=== PATIENT | male | born 1950 | race African-American/Black ===

== ENCOUNTER 2023-11-18 13:10 | Emergency (ER) | payer OTHER ==
[~2023-11-18] VITALS: Ht 175.3 cm; Wt 79.5 kg
[2023-11-18 14:25] VITALS: BP 129/64; PULSE 78; RESP 18; TEMP 98.7; O2SAT 98
[2023-11-18] MEDS ORDERED: MECL1TAB42 PO (15:44)
[2023-11-18] MEDS ORDERED: IBUP-1456 PO (15:44)
== END 2023-11-18 16:00 | disposition home or self-care (01) ==
LOC: EDBD 13:10 → ER 13:10
DX: S06.0X0A Concussion without loss of consciousness, initial encounter (principal); S39.012A Strain of muscle, fascia and tendon of lower back, initial encounter; E11.9 Type 2 diabetes mellitus without complications; Z79.899 Other long term (current) drug therapy; V49.88XA Car occupant (driver) (passenger) injured in other specified transport accidents, initial encounter; Y93.89 Activity, other specified; Y92.89 Other specified places as the place of occurrence of the external cause; Y99.8 Other external cause status
CPT/HCPCS: 70450; 72220

== ENCOUNTER 2025-06-11 08:27 | Inpatient (IN) | payer OTHER ==
[2025-06-11] VITALS (44 sets, daily range): BP systolic 108–143; BP diastolic 50–69; PULSE 50–74; RESP 0–22; TEMP 98.2–99.1; O2SAT 92–100
[~2025-06-11] VITALS: Ht 175.3 cm; Wt 75.0 kg
[~2025-06-11 08:27] MED LIST: IBUP-1456 PO; MECL1TAB42 PO
--- NOTE | 2025-06-11 08:43 | ED.PDOC ---
HPI Comments 75 year old male with PMHx DM presents to the ED with a chief complaint of chest pain onset 2 days. Patient has been experiencing LT sided chest pain radiating to bilateral arms, shoulders and back, headache for the past 2 days. 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 Denies shortness of breath, dizziness, nausea, vomiting, diarrhea, cough, cold, congestion, dysuria, hematuria. No other symptoms or modifying factors pr esent at this time. Chief Complaint: Chest Pain Time Seen by MD: 08:40 Reviewed Notes: Medications, Allergies Allergies: Coded Allergies: NO KNOWN ALLERGIES (Unverified , 11/18/23) Home Meds Active Scripts Meclizine HCl (Meclizine 25) 25 Mg Tab, 25 MG PO BID, #20 TAB Prov:VIKAS DUCKWORTH 11/18/23 Ibuprofen (Ibuprofen) 800 Mg Tab, 1 TAB PO TID, #30 TAB Prov:VIKAS DUCKWORTH 11/18/23 Information Source: Patient Mode of Arrival: Ambulatory Severity: Moderate Timing: Days Duration: Since onset Prehospital treatment: None Location: Chest (L) Radiation: Back, Shoulder (R), Shoulder (L), Arm (R), Arm (L) Quality: Sharp Onset: At Rest Cardiac Risk Factors: HTN, None PE Risk Factors: None History of: None Associated Signs and Symptoms: Back Pain Past Medical History PAST MEDICAL HISTORY: DM Surgical History: Denies all surgeries Family History Family History: Reviewed,noncontributory to illness Social History Smoker: Non-Smoker Alcohol: Denies ETOH Use Drugs: Denies Drug Use Lives In: Home Constitutional: denies: chills, diaphoresis, fatigue, fever, malaise, sweats, weakness, others EENTM: denies: blurred vision, double vision, ear bleeding, ear discharge, ear drainage, ear pain, ear ringing, eye pain, eye redness, hearing loss, mouth pain, mouth swelling, nasal discharge, nose bleeding, nose congestion, nose pain, photophobia, tearing, throat pain, throat swelling, voice changes, others Respiratory: denies: cough, hemoptysis, orthopnea, SOB at rest, shortness of breath, SOB with excertion, stridor, wheezing, others Cardiovascular: reports: chest pain; denies: dizzy spells, diaphoresis, Dyspnea on exertion, edema, irregular heart beat, left arm pain, lightheadedness, pa lpitations, PND, syncope, others Gastrointestinal: denies: abdomen distended, abdominal pain, blood streaked bowels, constipated, diarrhea, dysphagia, difficulty swallowing, hematemesis, melena, nausea, poor appetite, poor fluid intake, rectal bleeding, rectal pain, vomiting, others Genitourinary: denies: burning, dysuria, flank pain, frequency, hematuria, incontinence, penile discharge, penile sore, pain, testicle pain, testicle swelling, urgency, others Neurological: denies: dizziness, fainting, headache, left sided numbness, left sided weakness, numbness, paresthesia, pre-existing deficit, right sided numbness, right sided weakness, seizure, speech problems, tingling, tremors, weakness, others Musculoskeletal: reports: back pain, others (bilateral arm pain, bilateral shoulder pain); denies: gout, joint pain, joint swelling, muscle pain, muscle stiffness, neck pain Integumetry: denies: bruises, change in color, change in hair/nails, dryness, laceration, lesions, lumps, rash, wounds, others Allergic/Immunocompromised: denies: Difficulty Healing, Frequent Infections, Hives, Itching, others Hematologic/Lymphatic: denies: anemia, blood clots, easy bleeding, easy bruising, swollen glands, others Endocrine: denies: excessive hunger, excessive sweating, excessive thirst, excessive urination, flushing, intolerance to cold, intolerance to heat, unexplained weight gain, unexplained weight loss, others Psychiatric: denies: anxiety, bipolar disorder, depression, hopeless, panic disorder, schizophrenia, sleepless, suicidal, others All Other Systems: Reviewed and Negative Physical Exam General Appearance: Moderate Distress, Normal HEENT: Normal ENT Inspection, Pharynx Normal, TMs Normal Neck: Full Range of Motion, Non-Tender, Normal, Normal Inspection Respiratory: Chest Non-Tender, Lungs Clear, No Accessory Muscle Use, No Respiratory Distress, Normal Breath Sounds Cardiovascular: No Edema, No JVD, No Murmur, No Gallop, Normal Peripheral Pulses, Regular Rate/Rhythm Breast Exam: Deferred Gastrointestinal: No Organomegaly, Non Tender, No Pulsatile Mass, Normal Bowel Sounds, Soft Genitalia: Deferred Pelvic: Deferred Rectal: Deferred Extremities: No calf tenderness, Normal capillary refill, Normal inspection, Normal range of motion, Non-tender, No pedal edema Musculoskeletal : Apperance: Normal Neurologic: Alert, seismograph shooter II-XII nml as Tested, No Motor Deficits, Normal Affect, Normal Mood, No Sensory Deficits Cerebellar Function: Normal Reflexes: Normal Skin: Dry, Normal Color, Warm Peripheral Pulses: 3+ Radial (R), 3+ Radial (L) Lymphatic: No Adenopathy EKG EKG : Pulse Rate (adult): 58 Cardiac Rhythm: NSR Was a procedure done? Was a procedure done?: No CP Differential Dx Differential Diagnosis: A-fib, A-Flutter, Angina, Anxiety / Panic Attack, At rial Dysrhythmia, Electrolyte Disorder Differential Diagnosis: Chest Wall Pain, Myocardial Infarction X-Ray, Labs, Meds, VS Vital Signs Date Time Temp Pulse Resp B/P (MAP) Pulse Ox O2 Delivery O2 Flow Rate FiO2 06/11/25 09:12 52 06/11/25 09:12 111/51 06/11/25 09:12 98.7 52 16 111/51 (71) 99 98.7 06/11/25 08:43 58 06/11/25 08:36 58 06/11/25 08:34 98.0 57 16 132/70 96 98.0 Lab Test 06/11/25 08:40 Range/Units White Blood Count 8.1 4.4-10.8 10^3/uL Red Blood Count 4.95 4.5-5.90 10^6/uL Hemoglobin 14.7 13.5-17.5 g/dL Hematocrit 43.3 41.0-53.0 % Mean Corpuscular Volume 87.6 80.0-100.0 fL Mean Corpuscular Hemoglobin 29.7 28.0-32.0 pg Mean Corpuscular Hemoglobin Concent 34.0 32.0-36.0 g/dL Red Cell Distribution Width 12.8 11.8-14.3 % Platelet Count 320 140-450 10^3/uL Mean Platelet Volume 7.7 6.9-10.8 fL Neutrophils (%) (Auto) 71.1 37.0-80.0 % Lymphocytes (%) (Auto) 19.9 10.0-50.0 % Monocytes (%) (Auto) 7.8 0.0-12.0 % Eosinophils (%) (Auto) 0.5 0.0-7.0 % Basophils (%) (Auto) 0.7 0.0-2.0 % Neutrophils # (Auto) 5.8 1.6-8.6 10 ^3/uL Lymphocytes # (Auto) 1.6 0.4-5.4 10 ^3/uL Monocytes # (Auto) 0.6 0-1.3 10 ^3/uL Eosinophils # (Auto) 0 0-0.8 10 ^3/uL Basophils # (Auto) 0.1 0-0.2 10 ^3/uL Nucleated Red Blood Cells 0.0 % Prothrombin Time Pending Prothrombin Time INR Pending Activated Partial Thromboplast Time Pending Sodium Level 140 136-145 mmol/L Potassium Level 4.4 3.5-5.1 mmol/L Chloride Level 102 98-107 mmol/L Carbon Dioxide Level 26 20-31 mmol/L Anion Gap 12 5-15 Blood Urea Nitrogen 17 9-23 mg/dL Creatinine 1.27 0.700-1.30 mg/dL Glomerular Filtration Rate Calc 59 >90 mL/min BUN/Creatinine Ratio 13.4 10.0-20.0 Serum Glucose 296 H 74-106 mg/dL Hemoglobin A1c Pending Calcium Level 9.9 8.7-10.4 mg/dL Magnesium Level 2.2 1.6-2.6 mg/dL Total Bilirubin 0.4 0.2-1.0 mg/dL Aspartate Amino Transferase (AST) 21 13-40 U/L Alanine Aminotransferase (ALT) 29 7-40 U/L Alkaline Phosphatase 128 H 46-116 U/L Troponin I High Sensitivity 230 *H </=54 ng/L Total Protein 7.5 5.7-8.2 g/dL Albumin 4.8 3.2-4.8 g/dL Current Medications Medications (Trade) Dose Ordered Sig/Stacey Route Start Time Stop Time Status Last Admin Aspirin 325 mg ONCE ONCE PO 06/11/25 09:00 06/11/25 09:01 DC 06/11/25 09:11 Nitroglycerin (Ntrostat Sublingual) 0.4 mg ONCE ONCE SL 06/11/25 09:00 06/11/25 09:01 DC 06/11/25 09:12 Patient alert. Complaining of chest pain. Vitals stable. Answering questions. EKG reviewed does not show any acute changes. Was given aspirin. Was given nitro. Patient cardiac rhythm has change. Cardiac marker elevated. Was given heparin. Blood sugar elevated. Spoke with Cardiology. Has risk factors for coronary artery disease. Explained to the patient. Continue monitoring. [facility] [address] [place] [id number] Ph: [phone] DIAGNOSTIC IMAGING Diagnostic Imaging Report : [id number] Signed PATIENT: SHANNAN LARSON JRCCT: [id number] UNIT: [id number] : 1950 LOC: ER ROOM / BED: / AGE / SEX: 75 / M ADM STATUS: REG ER SERVICE 1 ORDERING PHYSICIAN: ROBERT BARTLETT MD PROCEDURE(s): CXRP - CHEST PORTABLE REASON: chest pain ORDER NUMBER(s): [id number], ACCESSION NUMBER(s): [id number] CHEST RADIOGRAPH INDICATION: chest pain TECHNIQUE: Single frontal view of the chest was obtained COMPARISON: None FINDINGS: Lines and Tubes: None Lungs: Clear Pleura: No effusion. No pneumothorax. Cardiomediastinal contours: Unremarkable Bones: Unremarkable IMPRESSION: No acute disease. ATED BY: RICKI BAJWA MD DICTATED DATE/TIME: 06/11/25906 SIGNED BY: RICKI BAJWA MD SIGNED DATE/TIME: 06/11/25906 CC: Time of 1ST Reevaluation: 09:10 Reevaluation 1ST: Unchanged Patient Education/Counseling: Diagnosis, Treatment, Prognosis Family Education/Counseling: No Family Present SEPSIS Sepsis Screen Physician Orders Chest Portable (06/11/25 08:32) Urinalysis (06/11/25 08:30) Electrocardigram (06/11/25 08:30) Troponin-I Hs (06/11/25 09:30) Troponin-I Hs (06/11/25 11:30) Electrocardigram (06/11/25 09:30) Electrocardigram (06/11/25 11:30) PTPTT (06/11/25 09:45) Type And Screen (06/11/25 09:45) Heparin Sodium (Porcine) (06/11/25 10:00) Heparin Sodium (Porcine) (06/11/25 10:00) Morphine Sulfate Injection (06/11/25 10:00) Ondansetron Hcl (Zofran) (06/11/25 10:00) Hydromorphone Injection (Dilaudid Inject (06/11/25 10:00) Ondansetron Hcl (Zofran) (06/11/25 10:00) NS (06/11/25 10:00) Obtain Consent For: (06/11/25 09:54) Shave Both Groins (06/11/25 09:54) Provide Education Materials (06/11/25 09:54) Cl Left Heart Cath (06/11/25 09:54) Comprehensive Metabolic Panel (06/13/25 04:00) Obtain Consent For Anesthesia (06/11/25 09:54) Hemoglobin A1c (06/11/25 09:59) Lipid Panel (06/11/25 09:59) Thyroid Stimulating Hormone (06/11/25 09:59) Echo 2d Mode Cardiac Dop (06/11/25 09:59) Complete Blood Count (06/12/25 04:00) Comprehensive Metabolic Panel (06/12/25 04:00) Vital Signs Date Time Temp Pulse Resp B/P (MAP) Pulse Ox O2 Delivery O2 Flow Rate FiO2 06/11/25 09:12 52 06/11/25 09:12 111/51 06/11/25 09:12 98.7 52 16 111/51 (71) 99 98.7 06/11/25 08:43 58 06/11/25 08:36 58 06/11/25 08:34 98.0 57 16 132/70 96 98.0 Laboratory Tests Test 06/11/25 08:40 White Blood Count 8.1 10^3/uL (4.4-10.8) Medications Medications Dose Ordered Sig/Stacey Route Start Time Stop Time Status Last Admin Dose Admin Aspirin 325 mg ONCE ONCE PO 06/11/25 09:00 06/11/25 09:01 DC 06/11/25 09:11 Nitroglycerin 0.4 mg ONCE ONCE SL 06/11/25 09:00 06/11/25 09:01 DC 06/11/25 09:12 Departure 1 Departure Time of Disposition: 08:46 Impression: Primary Impression: Chest pain of unknown etiology Additional Impressions: NSTEMI (non-ST elevated myocardial infarction) Demand ischemia Hyperglycemia Disposition: ADMITTED INPATIENT Admit to: Med Surg Condition: Guarded Critical Care Note Critical Care Time?: No Stability Stability form required: No Heart Score Heart Score: Heart Score Response (Comments) Value History Slightly Suspicious 0 EKG Normal 0 Age >65 2 Risk Factors >3 or Hx ASHD 2 Troponin >3 x's Normal limit 2 Total 6 I personally scribed for ROBERT BARTLETT MD ([email or web address]) on 06/11/25 at 08:43. Electronically submitted by Angelita Shah ([email or web address]). I personally scribed for ROBERT BARTLETT MD ([email or web address]) on 06/11/25 at 10:09. Electronically submitted by Angelita Shah ([email or web address]). ROBERT BARTLETT MD Jun 11, 2025 08:43
--- NOTE | 2025-06-11 09:09 | DVH ---
CHEST RADIOGRAPH INDICATION: chest pain TECHNIQUE: Single frontal view of the chest was obtained COMPARISON: None FINDINGS: Lines and Tubes: None Lungs: Clear Pleura: No effusion. No pneumothorax. Cardiomediastinal contours: Unremarkable Bones: Unremarkable IMPRESSION: No acute disease.
[2025-06-11 09:12] LABS: Hematocrit 43.3 % (41.0-53.0); Hemoglobin 14.7 g/dL (13.5-17.5); Mean Corpuscular Hemoglobin 29.7 pg (28.0-32.0); Mean Corpuscular Volume 87.6 fL (80.0-100.0); Nucleated Red Blood Cells % 0.0 %
[2025-06-11] MEDS: NITROGLYCERIN 0.4 MG SL TAB SL ONE (09:12)
[2025-06-11 09:38] LABS: Alanine Aminotransferase 29 U/L (7-40); Albumin 4.8 g/dL (3.2-4.8); Anion Gap 12 (5-15); BUN/Creatinine Ratio 13.4 (10.0-20.0); Blood Urea Nitrogen 17 mg/dL (9-23); Calcium 9.9 mg/dL (8.7-10.4); Carbon Dioxide 26 mmol/L (20-31); Chloride 102 mmol/L (98-107); Magnesium 2.2 mg/dL (1.6-2.6); Potassium 4.4 mmol/L (3.5-5.1); Sodium 140 mmol/L (136-145); Total Protein 7.5 g/dL (5.7-8.2)
[2025-06-11 09:39] LABS: Alkaline Phosphatase 128 U/L (46-116); Bilirubin, Total 0.4 mg/dL (0.2-1.0); Glucose 296 mg/dL (74-106)
[2025-06-11] MEDS: HEPARIN SODIUM (PORCINE) 5000 UNITS/ML 1ML VIAL ONE ×2 (09:53→10:29)
--- NOTE | 2025-06-11 09:56 | DVHINCON2 ---
Date Seen: Jun 11, 2025 Referring Physician MD Chen Reason for Consultation STEMI History of Present Illness This is a 75-year-old man who presented to the emergency room via ambulation with a chief complaint of chest pain since Wednesday06/09/2025. Describes his chest pain as substernal, radiating to bilateral upper extremities, pressure- like, non provoked, and associated with diaphoresis and a headache. The patient self administered ibuprofen p.o. with no relief of symptoms on 06/08/2025. Given ongoing chest pain symptoms he decided to seek further medical attention. Upon arrival to the emergency room he underwent an initial 12 lead electrocardiogram revealing a sinus bradycardia rhythm with nonspecific ST-T wave changes to lead three. A subsequent 12 lead electrocardiogram revealed progressive inferior wall ST segment elevation for which a code STEMI was called by ED physician. At time of assessment, the patient rated his chest pain as 10/10. Significant medical history includes hnw-sjrusti-dhldhedmj diabetes mellitus and dyslipidemia. Past Medical History Past medical history reviewed. No other significant than mentioned above. Past Surgical History Right thumb Family History Family history reviewed. Denies for cardiovascular disease. Social History Denies the use of illicit drugs, alcohol, or tobacco use. Allergies: Coded Allergies: NO KNOWN ALLERGIES (Unverified , 11/18/23) Home Meds Active Scripts Meclizine HCl (Meclizine 25) 25 Mg Tab, 25 MG PO BID, #20 TAB Prov:VIKAS DUCKWORTH 11/18/23 Ibuprofen (Ibuprofen) 800 Mg Tab, 1 TAB PO TID, #30 TAB Prov:VIKAS DUCKWORTH 11/18/23 Home Meds Home medications reviewed. Review of Systems Constitutional: No symptom reported Ears, Nose, & Throat: No symptom reported Eyes: No symptom reported Neurological: No symptoms reported Pulmonary/Respiratory: No symptom reported Cardiovascular: Chest pain Gastrointestinal: No symptom reported Genitourinary: No symptom reported Musculoskeletal: No symptom reported Skin: No symptom reported Psychiatric: No symptom reported Endocrine: No symptom reported Hemotologic/Lymphatic: No symptom reported Vital Signs Vital Signs Date Time Temp Pulse Resp B/P (MAP) Pulse Ox O2 Delivery O2 Flow Rate FiO2 06/11/25 09:12 52 06/11/25 09:12 111/51 06/11/25 09:12 98.7 16 99 98.7 Physical Exam General Appearance: Cooperative. Well developed. Well nourished. In no acute distress Head Exam: Normal inspection Neck Exam: Normal inspection. Non-tender. Normal alignment Pulmonary/Respiratory: Chest non-tender. Clear bilateral breath sounds Cardiovascular/Chest: Regular rate and rhythm. S1, S2. Inferior wall myocardial infarction. No murmurs. No JVD. Peripheral Pulses: 2+ Radial (R). 2+ Radial (L). 2+ Pedal (R). 2+ Pedal (L) Abdominal Exam: Normal bowel sounds. Soft. Nontender. No hepatospenomegaly. No masses Ankle Exam: Negative ankle edema Lower extremities: Negative lower extremity edema Neuro/Mental Status: A&O x4. Coherent Thoughts/Psych: Normal thought pattern. Appropriate mood and affect. Good judgement and insight Appearance: In no acute distress Skin Exam: Normal inspection. Normal color. Warm. Dry Labs/Diagnostic Data Labs Test 06/11/25 08:40 Range/Units White Blood Count 8.1 4.4-10.8 10^3/uL Red Blood Count 4.95 4.5-5.90 10^6/uL Hemoglobin 14.7 13.5-17.5 g/dL Hematocrit 43.3 41.0-53.0 % Mean Corpuscular Volume 87.6 80.0-100.0 fL Mean Corpuscular Hemoglobin 29.7 28.0-32.0 pg Mean Corpuscular Hemoglobin Concent 34.0 32.0-36.0 g/dL Red Cell Distribution Width 12.8 11.8-14.3 % Platelet Count 320 140-450 10^3/uL Mean Platelet Volume 7.7 6.9-10.8 fL Neutrophils (%) (Auto) 71.1 37.0-80.0 % Lymphocytes (%) (Auto) 19.9 10.0-50.0 % Monocytes (%) (Auto) 7.8 0.0-12.0 % Eosinophils (%) (Auto) 0.5 0.0-7.0 % Basophils (%) (Auto) 0.7 0.0-2.0 % Neutrophils # (Auto) 5.8 1.6-8.6 10 ^3/uL Lymphocytes # (Auto) 1.6 0.4-5.4 10 ^3/uL Monocytes # (Auto) 0.6 0-1.3 10 ^3/uL Eosinophils # (Auto) 0 0-0.8 10 ^3/uL Basophils # (Auto) 0.1 0-0.2 10 ^3/uL Nucleated Red Blood Cells 0.0 % Sodium Level 140 136-145 mmol/L Potassium Level 4.4 3.5-5.1 mmol/L Chloride Level 102 98-107 mmol/L Carbon Dioxide Level 26 20-31 mmol/L Anion Gap 12 5-15 Blood Urea Nitrogen 17 9-23 mg/dL Creatinine 1.27 0.700-1.30 mg/dL Glomerular Filtration Rate Calc 59 >90 mL/min BUN/Creatinine Ratio 13.4 10.0-20.0 Serum Glucose 296 H 74-106 mg/dL Calcium Level 9.9 8.7-10.4 mg/dL Magnesium Level 2.2 1.6-2.6 mg/dL Total Bilirubin 0.4 0.2-1.0 mg/dL Aspartate Amino Transferase (AST) 21 13-40 U/L Alanine Aminotransferase (ALT) 29 7-40 U/L Alkaline Phosphatase 128 H 46-116 U/L Troponin I High Sensitivity 230 *H </=54 ng/L Total Protein 7.5 5.7-8.2 g/dL Albumin 4.8 3.2-4.8 g/dL Assessment ST-elevation myocardial infarction Inferior wall myocardial infarction Rule out structural heart disease Asymptomatic sinus bradycardia Dte-fmpkxnc-letnlfwao diabetes mellitus with hyperglycemia Dyslipidemia Plan/Recommendation (Dr. Lambert) Code STEMI activated. The patient will be going for emergent cardiac catheterization and coronary angiogram at first available. All risks and benefits of the procedure were discussed with the patient and at bedside, they both agree for intervention. All questions answered. The patient was loaded on heparin and ASA prior to intervention. Avoid nitrates and/or diuretics. Initiate IV fluids given hyperglycemia. We will continue further cardiac evaluation with a transthoracic echocardiogram to rule out structural heart disease. Further orders per clinical course. Thank you for allowing us to participate in this patient's care. Please call if you have any questions or concerns. Critical care time: 40 minutes. This medical document was created using an electronic medical record system with voice recognition software and computerized dictation system. Although this document has been carefully reviewed, there might still be some phonetic and typographical errors. Occ asional wrong-word or ``sound-alike substitutions may have occurred due to the inherent limitations of voice recognition software. These areas are purely typographical due to imperfections of the software programs and do not reflect any compromise in the patient's medical care. Please read the chart carefully and recognize, using context, where these substitutions have occurred. Plan discussed with: Patient, Spouse, Other NYHA Physical activity limitations: NA Date of Service: Jun 11, 2025 Billing Provider: BONG FERRERA Cardiology Common Codes: 09865-[id number] CARE 30-74 MIN BONG FERRERA Jun 11, 2025 09:56
--- NOTE | 2025-06-11 10:09 | ECG ---
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
--- NOTE | 2025-06-11 10:09 | ECG ---
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
[2025-06-11] MEDS: MORPHINE SULFATE INJ 2 MG/ml SYRG IV ONE (10:12)
[2025-06-11] MEDS: HYDROmorphone HCL 2 MG/ML VL/or syr IV ONE (10:12)
[2025-06-11] MEDS: SODIUM CHLORIDE 0.9% 1,000 ML IV ONE (10:12)
[2025-06-11] MEDS: HEPARIN SODIUM (PORCINE) 5000 UNITS/ML 1ML VIAL IV ONE ×2 (10:12)
[2025-06-11] MEDS: ONDANSETRON HCL 4 MG/2 ML VIAL IV ONE ×2 (10:13)
[2025-06-11] MEDS: LIDOCAINE 2%HCL (LOCAL ANESTH.) INJ 20ML MDV ONE (10:15)
[2025-06-11] MEDS: IODIXANOL 320MG/ML 100ML BTL IV ONE ×2 (10:15→11:27)
[2025-06-11] MEDS: ANGIOMAX 250 MG VIAL IV ONE (10:29)
[2025-06-11] MEDS: VERAPAMIL 2.5MG/ML INJ 2ML VIAL IV ONE (10:29)
[2025-06-11] MEDS: SODIUM CHL 0.9% 50 ML ONE (10:30)
[2025-06-11] MEDS: MIDAZOLAM HCL 2MG/2ML 2ml VIAL (1mg/ml) ONE (10:30)
[2025-06-11] MEDS: fentaNYL CITRATE 100 MCG/2 ML VL ONE (10:30)
[2025-06-11 10:34] LABS: INR 0.95 (0.9-1.15); Partial Thromboplastin Time 25.7 SEC (24.5-34.5); Prothrombin Time 10.1 sec (9.3-11.8)
[2025-06-11] MEDS: TICAGRELOR 90 MG TAB ONE (11:27)
[2025-06-11] MEDS ORDERED: NITROGLYCERIN 0.4 MG SL TAB SL PRN (11:45)
--- NOTE | 2025-06-11 11:55 | DVHOP ---
DATE OF SURGERY: 06/11/2025 TECHNIQUE PERFORMED: * Code STEMI. * Insertion of a 6-Dominican arterial line in the artery. * Management of conscious sedation. * Right coronary angiography. * Mechanical thrombectomy of the right coronary artery with [place] catheter. * Stenting and angioplasty of the mid region of the right coronary artery with 3.5 x 15 mm length only frontal stent of VeriTran, 3.0 x 15 mm length. * Intravascular ultrasound of the right coronary artery. * Balloon angioplasty of the right coronary artery stent with 3.5 x 8 mm length and noncompliant balloon. Made the artery size to 3.55. COMPLICATIONS: None. ASSISTANTS: Assisted by our staff over here is Sim Grant, Quinn Renner, and Fredy. INDICATIONS: Post-STEMI acute inferior wall myocardial infarction. DESCRIPTION OF PROCEDURE: All risks, benefits discussed in a standard manner. The patient has been brought to the cathead worker urgently and we put a 6-Dominican arterial line and the patient received a cocktail of 100 mcg of nitroglycerin, 2.5 mg of verapamil, 2000 units of heparin, JL4 6-Dominican guiding catheter with a side hole was passed. We put a ProWater wire and AngioMax already was started. We got thrombectomy done with [place] catheter. Subsequently, we put a stent 3.0 x 15 mm line only further and then deployed. A total of 17 atmosphere. Stent size was increased to 3.25 mm inflated for 31 seconds and subsequently balloon deflated. Balloon had been discontinued. Interval ultrasound was done. We found minor gap in the stent and the media. We put 3.5 x 8 mm length noncompliant balloon made inflated and made the stent size to 3.55 mm. Balloon wire catheter all have been discontinued and procedure went well. CONCLUSION: * Prior to performing the procedure #1, the right coronary artery at its mid region is 100% acutely occluded, SEAN grade 0 flow. Right coronary artery is a large dominant artery. * Post procedure, SEAN grade 3 flow and residual stenosis is 0%. No spasm. No dissection. No thrombosis. PLAN OF ACTION: Advised the patient to have aspirin and Brilinta, beta zi, cholesterol reducing medicine, and outpatient follow up. Gustavo Lambert MD MP/TRACIE TID: [id number] RECEIPT: [id number] MTDD
--- NOTE | 2025-06-11 11:55 | DVHOP ---
DATE OF SURGERY: 06/11/2025 TECHNIQUE PERFORMED: * Code STEMI. * Ultrasound of right radial artery. * Management of conscious sedation. * Insertion of a 6-Italian arterial line in the right radial artery. * Left heart catheterization. * Left ventriculogram. * Full [place] selective left and right coronary angiography. ASSISTANTS: Assisted by our staff. Over here is Sim Grant and Zurdo Farooq. COMPLICATIONS: None. INDICATIONS: Code STEMI, acute inferior wall myocardial infarction. DESCRIPTION OF PROCEDURE: The procedure, risks and benefits were discussed in standard manner. We have put a JL 3.5 catheter and the left coronary angiography was done and subsequently, with the help of the 6-Italian JR-4, a guiding catheter with side hole and a right coronary angiography was done. At the end of the procedure, with the help of a similar catheter, we also did a left heart catheterization and left angiogram. Procedure completed. IMPRESSION: * Normal left main. * Left anterior descending artery widely open. * Circumflex artery normal. * Right coronary artery 100% acutely blocked after a mid region SEAN grade 0 flow. * Ejection fraction of the left ventricle is 60%. PLAN OF ACTION: Advise to undergo the intervention on the right coronary artery, which is acutely occluded and which is the cause of the code STEMI. MD MAMIE Lyles TID: [id number] RECEIPT: [id number]
[2025-06-11] MEDS ORDERED: MORPHINE SULFATE 4 MG/ML SYR/VIAL IV PRN (12:00)
[2025-06-11 12:06] LABS: Urine Protein, UAD TRACE (Negative)
[2025-06-11 13:33] LABS: Triglycerides 117 mg/dL (< 150)
[2025-06-11 13:35] LABS: HDL Cholesterol 55 mg/dL (40-59)
[2025-06-11 13:36] LABS: Cholesterol 229 mg/dL (< 200)
[2025-06-11] MEDS ORDERED: DEXTROSE (50%) 50ML SYRG IV PRN (18:00)
[2025-06-11] MEDS: InsuLIN REG 1unit/0.01ml Soln (100units/ml) SC SCH (19:22)
[2025-06-11] MEDS: ACCU-CHEK COMFORT CURVE STRIP VI SCH (19:23)
--- NOTE | 2025-06-11 20:16 | DVHSR ---
APPROVED REPORT EXAM: Two-dimensional and M-mode echocardiogram with Doppler and color Doppler. Blood Pressure: 142/71 mmHg INDICATION STEMI RISK FACTORS Height: 5'9", Weight: 164 DIMENSIONS LVDd 5.0 (3.8-5.7cm) LA (2D) 4.1 (1.9-4.0cm) Aortic Root 3.0 (2.0-3.7cm) LVDs 3.4 (2.5-4.0cm) LA (MM) (1.9-4.0cm) Aortic Cusp Exc 1.5 (1.5-2.0cm) EF (%) 60.0 (55-70%) Rt. Atrium 3.9 (1.9-4.0cm) Asc. Aorta 2.8 cm IVSd 1.1 (0.7-1.1cm) RV (D) 4.0 (1.8-2.4cm) PWd 1.0 (0.7-1.1cm) Mitral Valve Mitral Mitral Stenosis E wave 0.97m/s MV Mean GR. mmHg A wave 0.73m/s MV Peak GR. mmHg E/A ratio 1.3 2D MVA cm2 DECEL Time 155ms PRESS 1/2 Time ms Aortic Valve Aortic Valve Aortic Stenosis V1 0.88m/s AO Mean GR. 4mmHg V2 1.44m/s AO Peak GR. 8mmHg LVOT Diameter 2.3 (1.8-2.4cm) Doppler BARBARA 2.54cm2 Pulmonic Valve V2 0.83m/s Conclusion MILD LVH AND MILD LV DIASTOLIC DYSFUNCTION LV EF IS 70% NORMAL VALVES NORMAL RV FUNCTION NO EFFUSION
--- NOTE | 2025-06-11 20:32 | DVHINCON2 ---
Date Seen: Jun 11, 2025 Referring Physician MD Chen Reason for Consultation STEMI History of Present Illness This is a 75-year-old male with a PMH of poe-iptkbdm-wkdieqwfj diabetes mellitus and dyslipidemia who presented to the emergency room via ambulation with a chief complaint of chest pain since Wednesday06/09/2025. Describes his chest pain as substernal, radiating to bilateral upper extremities, pressure-like, non provoked, and associated with diaphoresis and a headache. The patient self administered ibuprofen p.o. with no relief of symptoms on 06/08/2025. Given ongoing chest pain symptoms he decided to seek further medical attention. Upon arrival to the emergency room he underwent an initial 12 lead electrocardiogram revealing a sinus bradycardia rhythm with nonspecific ST-T wave changes to lead three. A subsequent 12 lead electrocardiogram revealed progressive inferior wall ST segment elevation for which a code STEMI was called by ED physician. At time of assessment, the patient rated his chest pain as 10/10. Past Medical History Past medical history reviewed. No other significant than mentioned above. Past Surgical History Right thumb Family History: Diabetes mellitus G8 MOTHER FH: cancer G8 FATHER Allergies: Coded Allergies: NO KNOWN ALLERGIES (Unverified , 11/18/23) Home Meds Active Scripts Meclizine HCl (Meclizine 25) 25 Mg Tab, 25 MG PO BID, #20 TAB Prov:VIKAS DUCKWORTH 11/18/23 Ibuprofen (Ibuprofen) 800 Mg Tab, 1 TAB PO TID, #30 TAB Prov:VIKAS DUCKWORTH 11/18/23 Current Medications Current Medications Medications (Trade) Dose Ordered Sig/Stacey Route PRN Reason Start Time Stop Time Status Last Admin Nitroglycerin (Ntrostat Sublingual) 0.4 mg Q5MINP PRN SL FOR CHEST PAIN 06/11/25 11:45 Morphine Sulfate 2 mg Q30M PRN IV FOR CHEST PAIN 06/11/25 12:00 Ticagrelor (Brilinta) 90 mg BID PO 06/11/25 22:00 Aspirin (Ecotrin Enteric Coated Tablet) 81 mg DAILY PO 06/12/25 10:00 Metoprolol Tartrate (Lopressor Tablet) 25 mg DAILY PO 06/12/25 10:00 Atorvastatin Calcium (Lipitor) 80 mg DAILY PO 06/12/25 10:00 Diagnostic Test (Pha) (Accu-Chek Comfort Curve T) 1 strip Q6HR 06/11/25 18:00 06/11/25 19:23 Insulin Human Regular (InsuLIN R) Q6HR SC 06/11/25 18:00 06/11/25 19:22 Dextrose 50 ml UD PRN IV Blood Sugar LESS THAN 60 06/11/25 18:00 Review of Systems Constitutional: No symptom reported Ears, Nose, & Throat: No symptom reported Eyes: No symptom reported Neurological: No symptoms reported Pulmonary/Respiratory: No symptom reported Cardiovascular: Chest pain Gastrointestinal: No symptom reported Genitourinary: No symptom reported Musculoskeletal: No symptom reported Skin: No symptom reported Psychiatric: No symptom reported Endocrine: No symptom reported Hemotologic/Lymphatic: No symptom reported Vital Signs Vital Signs Date Time Temp Pulse Resp B/P (MAP) Pulse Ox O2 Delivery O2 Flow Rate FiO2 06/11/25 19:30 68 12 97 06/11/25 19:26 Room Air* 0 21 06/11/25 19:15 122/69 (86) 06/11/25 18:48 99.1 99.1 Physical Exam GENERAL: Alert and oriented x 3. No acute distress. EYES: PERRL, EOMI. Anicteric. HENT: Moist mucous membranes. LUNGS: Clear to auscultation bilaterally. CARDIOVASCULAR: Regular rate and rhythm. ABDOMEN: Soft, non-tender and non-distended. EXTREMITIES: No edema. NEUROLOGIC: No focal neurological deficits. SKIN: Warm, dry. Labs/Diagnostic Data Labs Test 06/11/25 18:44 06/11/25 09:48 06/11/25 09:18 06/11/25 08:40 Range/Units POC Glucose 312 H 70-106 mg/dl Troponin I High Sensitivity 237 *H </=54 ng/L Urine Color Yellow Yellow Urine Clarity Clear Clear Urine pH 5.5 5.0-9.0 Urine Specific [place] 1.025 1.001-1.035 Urine Protein Trace H Negative Urine Ketones 1+ H Negative Urine Blood Negative Negative /uL Urine Nitrite Negative Negative Urine Bilirubin Negative Negative Urine Urobilinogen Normal Negative mg/dL Urine Leukocyte Esterase Negative Negative /uL Urine RBC <1 0 - 3 /hpf Urine Microscopic WBC 6 H 0-3 /HPF Urine Squamous Epithelial Cells None seen <5 /hpf Urine Bacteria None seen None Seen /hpf Urine Mucus Few None Seen Urine Glucose 3+ H Normal mg/dL White Blood Count 8.1 4.4-10.8 10^3/uL Red Blood Count 4.95 4.5-5.90 10^6/uL Hemoglobin 14.7 13.5-17.5 g/dL Hematocrit 43.3 41.0-53.0 % Mean Corpuscular Volume 87.6 80.0-100.0 fL Mean Corpuscular Hemoglobin 29.7 28.0-32.0 pg Mean Corpuscular Hemoglobin Concent 34.0 32.0-36.0 g/dL Red Cell Distribution Width 12.8 11.8-14.3 % Platelet Count 320 140-450 10^3/uL Mean Platelet Volume 7.7 6.9-10.8 fL Neutrophils (%) (Auto) 71.1 37.0-80.0 % Lymphocytes (%) (Auto) 19.9 10.0-50.0 % Monocytes (%) (Auto) 7.8 0.0-12.0 % Eosinophils (%) (Auto) 0.5 0.0-7.0 % Basophils (%) (Auto) 0.7 0.0-2.0 % Neutrophils # (Auto) 5.8 1.6-8.6 10 ^3/uL Lymphocytes # (Auto) 1.6 0.4-5.4 10 ^3/uL Monocytes # (Auto) 0.6 0-1.3 10 ^3/uL Eosinophils # (Auto) 0 0-0.8 10 ^3/uL Basophils # (Auto) 0.1 0-0.2 10 ^3/uL Nucleated Red Blood Cells 0.0 % Prothrombin Time 10.1 9.3-11.8 sec Prothrombin Time INR 0.95 0.9-1.15 Activated Partial Thromboplast Time 25.7 24.5-34.5 SEC Sodium Level 140 136-145 mmol/L Potassium Level 4.4 3.5-5.1 mmol/L Chloride Level 102 98-107 mmol/L Carbon Dioxide Level 26 20-31 mmol/L Anion Gap 12 5-15 Blood Urea Nitrogen 17 9-23 mg/dL Creatinine 1.27 0.700-1.30 mg/dL Glomerular Filtration Rate Calc 59 >90 mL/min BUN/Creatinine Ratio 13.4 10.0-20.0 Serum Glucose 296 H 74-106 mg/dL Hemoglobin A1c 11.9 H <5.7 % A1C Calcium Level 9.9 8.7-10.4 mg/dL Magnesium Level 2.2 1.6-2.6 mg/dL Total Bilirubin 0.4 0.2-1.0 mg/dL Aspartate Amino Transferase (AST) 21 13-40 U/L Alanine Aminotransferase (ALT) 29 7-40 U/L Alkaline Phosphatase 128 H 46-116 U/L Total Protein 7.5 5.7-8.2 g/dL Albumin 4.8 3.2-4.8 g/dL Triglycerides Level 117 < 150 mg/dL Cholesterol Level 229 H < 200 mg/dL LDL Cholesterol 154 H < 100 mg/dL HDL Cholesterol 55 40-59 mg/dL Thyroid Stimulating Hormone (TSH) 2.95 0.55-4.78 uIU/mL Assessment ST-elevation myocardial infarction. Inferior wall myocardial infarction. Rule out structural heart disease. Asymptomatic sinus bradycardia. Oza-qssbalp-hgpgkjvsv diabetes mellitus with hyperglycemia. Dyslipidemia. Plan/Recommendation I agree with your ongoing assessment and care of plan. Patient has been seen by Salud Small NP on my behalf. We have discussed the plan with the patient. Code STEMI activated. The patient will be going for emergent cardiac catheterization and coronary angiogram at first available. All risks and benefits of the procedure were discussed with the patient and at bedside, they both agree for intervention. All questions answered. The patient was loaded on heparin and ASA prior to intervention. Avoid nitrates and/or diuretics. Initiate IV fluids given hyperglycemia. We will continue further cardiac evaluation with a transthoracic echocardiogram to rule out structural heart disease. Additional plan as per the hospital course. Plan discussed with: Patient NYHA Physical activity limitations: NA Date of Service: Jun 11, 2025 Billing Provider: JOSELINE ZELAYA MD Cardiology Common Codes: 36725-[id number] INP/OBS CARE (High), 28669-[id number] CARE 30-74 MIN, 44412-YSESPUJA CARE-EACH +30MIN JOSELINE ZELAYA MD Jun 11, 2025 20:32
[2025-06-11] MEDS: TICAGRELOR 90 MG TAB PO SCH (21:15)
[2025-06-12] VITALS (42 sets, daily range): BP systolic 94–127; BP diastolic 45–65; PULSE 47–76; RESP 0–22; TEMP 97.6–98.3; O2SAT 93–99
[2025-06-12 05:38] LABS: Hematocrit 39.8 % (41.0-53.0); Hemoglobin 13.2 g/dL (13.5-17.5); Mean Corpuscular Hemoglobin 29.2 pg (28.0-32.0); Mean Corpuscular Volume 88.1 fL (80.0-100.0); Nucleated Red Blood Cells % 0.1 %
[2025-06-12 06:06] LABS: Alanine Aminotransferase 30 U/L (7-40); Albumin 3.9 g/dL (3.2-4.8); Alkaline Phosphatase 103 U/L (46-116); Anion Gap 7 (5-15); BUN/Creatinine Ratio 12.0 (10.0-20.0); Bilirubin, Total 0.3 mg/dL (0.2-1.0); Blood Urea Nitrogen 12 mg/dL (9-23); Calcium 9.2 mg/dL (8.7-10.4); Carbon Dioxide 29 mmol/L (20-31); Chloride 103 mmol/L (98-107); Potassium 4.2 mmol/L (3.5-5.1); Sodium 139 mmol/L (136-145); Total Protein 6.4 g/dL (5.7-8.2)
[2025-06-12 06:09] LABS: Glucose 125 mg/dL (74-106)
[2025-06-12] MEDS: ASPirin-EC 81 mg tab PO SCH (09:19)
[2025-06-12] MEDS: ATORVASTATIN 20 MG TAB PO SCH (09:19)
[2025-06-12] MEDS: METOPROLOL TARTRATE 25 MG TAB PO SCH (09:20)
--- NOTE | 2025-06-12 10:39 | DVHHP2 ---
Review of Systems Allergies: Coded Allergies: NO KNOWN ALLERGIES (Unverified , 11/18/23) Medications Current Medications Medications Dose Ordered Sig/Stacey Route Start Time Stop Time Status Last Admin Dose Admin Nitroglycerin 0.4 mg Q5MINP PRN SL 06/11/25 11:45 Morphine Sulfate 2 mg Q30M PRN IV 06/11/25 12:00 Ticagrelor 90 mg BID PO 06/11/25 22:00 06/12/25 09:20 90 MG Aspirin 81 mg DAILY PO 06/12/25 10:00 06/12/25 09:19 81 MG Metoprolol Tartrate 25 mg DAILY PO 06/12/25 10:00 06/12/25 09:20 25 MG Atorvastatin Calcium 80 mg DAILY PO 06/12/25 10:00 06/12/25 09:19 80 MG Diagnostic Test (Pha) 1 strip Q6HR 06/11/25 18:00 06/12/25 05:06 1 STRIP Insulin Human Regular Q6HR SC 06/11/25 18:00 06/12/25 00:05 2 UNITS Dextrose 50 ml UD PRN IV 06/11/25 18:00 Exam Vital Signs Vital Signs Date Time Temp Pulse Resp B/P (MAP) Pulse Ox O2 Delivery O2 Flow Rate FiO2 06/12/25 09:20 76 108/55 06/12/25 08:00 Room Air* 0 21 06/12/25 06:49 16 06/12/25 06:20 97 06/12/25 00:19 98.3 98.3 Labs/Xrays Labs Test 06/12/25 05:09 06/12/25 05:05 06/11/25 09:48 06/11/25 09:18 Range/Units White Blood Count 8.3 4.4-10.8 10^3/uL Red Blood Count 4.52 4.5-5.90 10^6/uL Hemoglobin 13.2 L 13.5-17.5 g/dL Hematocrit 39.8 L 41.0-53.0 % Mean Corpuscular Volume 88.1 80.0-100.0 fL Mean Corpuscular Hemoglobin 29.2 28.0-32.0 pg Mean Corpuscular Hemoglobin Concent 33.1 32.0-36.0 g/dL Red Cell Distribution Width 13.1 11.8-14.3 % Platelet Count 289 140-450 10^3/uL Mean Platelet Volume 7.3 6.9-10.8 fL Neutrophils (%) (Auto) 76.1 37.0-80.0 % Lymphocytes (%) (Auto) 14.1 10.0-50.0 % Monocytes (%) (Auto) 8.9 0.0-12.0 % Eosinophils (%) (Auto) 0.7 0.0-7.0 % Basophils (%) (Auto) 0.2 0.0-2.0 % Neutrophils # (Auto) 6.4 1.6-8.6 10 ^3/uL Lymphocytes # (Auto) 1.2 0.4-5.4 10 ^3/uL Monocytes # (Auto) 0.7 0-1.3 10 ^3/uL Eosinophils # (Auto) 0.1 0-0.8 10 ^3/uL Basophils # (Auto) 0 0-0.2 10 ^3/uL Nucleated Red Blood Cells 0.1 % Sodium Level 139 136-145 mmol/L Potassium Level 4.2 3.5-5.1 mmol/L Chloride Level 103 98-107 mmol/L Carbon Dioxide Level 29 20-31 mmol/L Anion Gap 7 5-15 Blood Urea Nitrogen 12 9-23 mg/dL Creatinine 1.00 0.700-1.30 mg/dL Glomerular Filtration Rate Calc 79 >90 mL/min BUN/Creatinine Ratio 12.0 10.0-20.0 Serum Glucose 125 #H 74-106 mg/dL Calcium Level 9.2 8.7-10.4 mg/dL Total Bilirubin 0.3 0.2-1.0 mg/dL Aspartate Amino Transferase (AST) 71 H 13-40 U/L Alanine Aminotransferase (ALT) 30 7-40 U/L Alkaline Phosphatase 103 46-116 U/L Total Protein 6.4 5.7-8.2 g/dL Albumin 3.9 3.2-4.8 g/dL POC Glucose 123 H 70-106 mg/dl Troponin I High Sensitivity 237 *H </=54 ng/L Urine Color Yellow Yellow Urine Clarity Clear Clear Urine pH 5.5 5.0-9.0 Urine Specific [place] 1.025 1.001-1.035 Urine Protein Trace H Negative Urine Ketones 1+ H Negative Urine Blood Negative Negative /uL Urine Nitrite Negative Negative Urine Bilirubin Negative Negative Urine Urobilinogen Normal Negative mg/dL Urine Leukocyte Esterase Negative Negative /uL Urine RBC <1 0 - 3 /hpf Urine Microscopic WBC 6 H 0-3 /HPF Urine Squamous Epithelial Cells None seen <5 /hpf Urine Bacteria None seen None Seen /hpf Urine Mucus Few None Seen Urine Glucose 3+ H Normal mg/dL Test 06/11/25 08:40 Range/Units Prothrombin Time 10.1 9.3-11.8 sec Prothrombin Time INR 0.95 0.9-1.15 Activated Partial Thromboplast Time 25.7 24.5-34.5 SEC Hemoglobin A1c 11.9 H <5.7 % A1C Magnesium Level 2.2 1.6-2.6 mg/dL Triglycerides Level 117 < 150 mg/dL Cholesterol Level 229 H < 200 mg/dL LDL Cholesterol 154 H < 100 mg/dL HDL Cholesterol 55 40-59 mg/dL Thyroid Stimulating Hormone (TSH) 2.95 0.55-4.78 uIU/mL SEPSIS Sepsis Screen Date sepsis recognized/suspect: Jun 11, 2025 Time Sepsis recognized/suspect: 911 Recent Procedure: No On Antibiotic Therapy: No Respiratory Rate >20: No Heart Rate >90: No Temp<36 C (96.8 F) or >38.3 C: No SBP <90 or MAP <65 mmHG: No New Acute Mental Status Change: No Is the patient on CPAP, BIPAP,: No Physician Orders * Endocrinology Consult (06/12/25 09:43) Transfer Orders (06/12/25 10:35) Vital Signs Date Time Temp Pulse Resp B/P (MAP) Pulse Ox O2 Delivery O2 Flow Rate FiO2 06/12/25 09:20 76 108/55 06/12/25 08:00 Room Air* 0 21 06/12/25 06:49 63 16 124/65 (84) 06/12/25 06:20 63 15 127/56 (79) 97 06/12/25 05:50 60 5 107/50 (69) 99 06/12/25 05:19 63 18 95/45 (62) 96 06/12/25 04:49 65 17 97/60 (72) 97 06/12/25 04:19 59 18 117/59 (78) 97 06/12/25 04:00 64 06/12/25 03:49 56 15 116/58 (77) 98 06/12/25 03:19 57 14 114/56 (75) 98 06/12/25 02:49 60 15 99/57 (71) 98 Laboratory Tests Test 06/12/25 05:09 White Blood Count 8.3 10^3/uL (4.4-10.8) Medications Medications Dose Ordered Sig/Stacey Route Start Time Stop Time Status Last Admin Dose Admin Aspirin 81 mg DAILY PO 06/12/25 10:00 06/12/25 09:19 81 MG Atorvastatin Calcium 80 mg DAILY PO 06/12/25 10:00 06/12/25 09:19 80 MG Metoprolol Tartrate 25 mg DAILY PO 06/12/25 10:00 06/12/25 09:20 25 MG Assessment/Plan Assessment/Plan see dictated note Plan discussed with: Patient My Orders Orders - PAULINA DANIELLE MD Procedure Category Date Status Time Transfer Orders XFER 06/12/25 Verified 10:35 Date of Service: Jun 12, 2025 Billing Provider: PAULINA DANIELLE MD Common Visit Codes: [id number]-[id number] CARE 30-74 MIN PAULINA DANIELLE MD Jun 12, 2025 10:39
--- NOTE | 2025-06-12 10:57 | DVHHP ---
ADMIT DATE: 06/11/2025 HISTORY OF PRESENT ILLNESS: The patient is a 75-year-old gentleman who was admitted with a history of chest pain since 06/09/2025. The patient's pain was substernal, radiating to bilateral extremities, accompanied by headache and diaphoresis. He denies any shortness of breath. No history of dizziness or syncope. No pedal edema. REVIEW OF SYSTEMS: Review of rest of the systems otherwise is currently negative. PAST MEDICAL HISTORY: Significant for diabetes mellitus, for which the patient has been noncompliant with any treatment for the last several years as well as hyperlipidemia. MEDICATIONS: He was to take metformin, but does not take it at the current time. ALLERGIES: No known drug allergies. SOCIAL HISTORY: Denies smoking or alcohol. FAMILY HISTORY: Negative. PHYSICAL EXAMINATION: GENERAL: On exam, the patient is awake, alert. VITAL SIGNS: Temperature of 98.2, pulse 63 per minute, blood pressure 124/65. SHEENT: Unremarkable. NECK: There is no JVD. LUNGS: Equal bilaterally. No added sounds. CARDIOVASCULAR: S1, S2 is regular. No murmurs. ABDOMEN: Soft. There is no organomegaly. EXTREMITIES: No pedal edema. NEUROLOGIC: Nonfocal. MUSCULOSKELETAL: Normal. ASSESSMENT AND PLAN: * Acute myocardial infarction, status post coronary angiography. The patient will continue with aspirin and Brilinta. * Uncontrolled diabetes mellitus, for which he will be placed on sliding scale insulin. * Hyperlipidemia. Critical care time spent was 38 minutes. MD CHEL Paiz/ TID: [id number] RECEIPT: [id number]
--- NOTE | 2025-06-12 14:17 | DVHCONRES ---
Date Seen: Jun 12, 2025 Resident Creating Document: MIGUEL ANGEL CENTENO RESIDENT Referring Physician Dr Tresa Lambert Reason for Consultation DM History of Present Illness Melisa Holden is a 75 year old male patient who presents to ED with chief complaint of oppressive retrosternal chest pain that radiates towards neck and bilateral arms which started a proximally three days before his admission, also describes it as unprovoked intermittent and associated with diaphoresis and headaches. Pain was not resolved a ybsk-hoo-xbdordp analgesic medication (ibuprofen), prompting his visit to the ED. Patient was diagnosed with inferior wall STEMI currently status post coronary angiography with PCI with placement of two CHAVO in mid RCA. Denies any other associated symptoms. Endocrinology was consulted for diabetes mellitus. Patient has been diagnosed diabetes for the past 10 years, he was indicated treatment with metformin, but patient did not take it since he believes metformin is detrimental for her (he believes that his mother and aunt because of metformin). Past medical history: Diabetes, hospitalization in 2019 due to COVID pneumonia Surgical history: Denies Family history: Father had lung cancer. Mother and aunt had diabetes. Social history: Lives in [place] with family (next of kin is , Rosalinda). Denies current tobacco, alcohol and other drug abuse S: Denies Home medication: Denies (was indicated metformin but he never took it) Patient seen and examined at bedside. Currently has no new complaints. Past Medical History Per HPI Past Surgical History Per HPI Family History: Diabetes mellitus G8 MOTHER FH: cancer G8 FATHER Family History Per HPI Social History Per HPI Allergies: Coded Allergies: NO KNOWN ALLERGIES (Unverified , 11/18/23) Allergies Per HPI Home Meds Active Scripts Meclizine HCl (Meclizine 25) 25 Mg Tab, 25 MG PO BID, #20 TAB Prov:VIKAS DUCKWORTH 11/18/23 Ibuprofen (Ibuprofen) 800 Mg Tab, 1 TAB PO TID, #30 TAB Prov:VIKAS DUCKWORTH 11/18/23 Current Medications Current Medications Medications (Trade) Dose Ordered Sig/Stacey Route PRN Reason Start Time Stop Time Status Last Admin Ticagrelor (Brilinta) 90 mg BID PO 06/11/25 22:00 06/12/25 09:20 Aspirin (Ecotrin Enteric Coated Tablet) 81 mg DAILY PO 06/12/25 10:00 06/12/25 09:19 Metoprolol Tartrate (Lopressor Tablet) 25 mg DAILY PO 06/12/25 10:00 06/12/25 09:20 Atorvastatin Calcium (Lipitor) 80 mg DAILY PO 06/12/25 10:00 06/12/25 09:19 Diagnostic Test (Pha) (Accu-Chek Comfort Curve T) 1 strip Q6HR 06/11/25 18:00 06/12/25 11:33 Insulin Human Regular (InsuLIN R) Q6HR SC 06/11/25 18:00 06/12/25 11:45 Dextrose 50 ml UD PRN IV Blood Sugar LESS THAN 60 06/11/25 18:00 Review of Systems Per HPI Vital Signs Vital Signs Date Time Temp Pulse Resp B/P (MAP) Pulse Ox O2 Delivery O2 Flow Rate FiO2 06/12/25 12:19 98.1 76 13 98 98.1 06/12/25 08:00 Room Air* 0 21 Physical Exam Patient lying in bed, in no acute distress General: Lucid, afebrile, mucosae are moist Cardiovascular: Normal S1 and S2. No murmurs, gallops or rubs Respiratory: Normal ventilation mechanics. Clear lung sounds on auscultation Abdomen: Soft, nontender, no organomegaly, normal bowel sounds MSK/skin: Mobilizes 4 limbs. Skin is dry and warm Neurological: Oriented in 3 spheres. No motor no sensitive deficits. Pupils are isocoric and reactive Labs/Diagnostic Data Labs Test 06/12/25 11:33 06/12/25 05:09 06/11/25 09:48 06/11/25 09:18 Range/Units POC Glucose 264 H 70-106 mg/dl White Blood Count 8.3 4.4-10.8 10^3/uL Red Blood Count 4.52 4.5-5.90 10^6/uL Hemoglobin 13.2 L 13.5-17.5 g/dL Hematocrit 39.8 L 41.0-53.0 % Mean Corpuscular Volume 88.1 80.0-100.0 fL Mean Corpuscular Hemoglobin 29.2 28.0-32.0 pg Mean Corpuscular Hemoglobin Concent 33.1 32.0-36.0 g/dL Red Cell Distribution Width 13.1 11.8-14.3 % Platelet Count 289 140-450 10^3/uL Mean Platelet Volume 7.3 6.9-10.8 fL Neutrophils (%) (Auto) 76.1 37.0-80.0 % Lymphocytes (%) (Auto) 14.1 10.0-50.0 % Monocytes (%) (Auto) 8.9 0.0-12.0 % Eosinophils (%) (Auto) 0.7 0.0-7.0 % Basophils (%) (Auto) 0.2 0.0-2.0 % Neutrophils # (Auto) 6.4 1.6-8.6 10 ^3/uL Lymphocytes # (Auto) 1.2 0.4-5.4 10 ^3/uL Monocytes # (Auto) 0.7 0-1.3 10 ^3/uL Eosinophils # (Auto) 0.1 0-0.8 10 ^3/uL Basophils # (Auto) 0 0-0.2 10 ^3/uL Nucleated Red Blood Cells 0.1 % Sodium Level 139 136-145 mmol/L Potassium Level 4.2 3.5-5.1 mmol/L Chloride Level 103 98-107 mmol/L Carbon Dioxide Level 29 20-31 mmol/L Anion Gap 7 5-15 Blood Urea Nitrogen 12 9-23 mg/dL Creatinine 1.00 0.700-1.30 mg/dL Glomerular Filtration Rate Calc 79 >90 mL/min BUN/Creatinine Ratio 12.0 10.0-20.0 Serum Glucose 125 #H 74-106 mg/dL Calcium Level 9.2 8.7-10.4 mg/dL Total Bilirubin 0.3 0.2-1.0 mg/dL Aspartate Amino Transferase (AST) 71 H 13-40 U/L Alanine Aminotransferase (ALT) 30 7-40 U/L Alkaline Phosphatase 103 46-116 U/L Total Protein 6.4 5.7-8.2 g/dL Albumin 3.9 3.2-4.8 g/dL Troponin I High Sensitivity 237 *H </=54 ng/L Urine Color Yellow Yellow Urine Clarity Clear Clear Urine pH 5.5 5.0-9.0 Urine Specific [place] 1.025 1.001-1.035 Urine Protein Trace H Negative Urine Ketones 1+ H Negative Urine Blood Negative Negative /uL Urine Nitrite Negative Negative Urine Bilirubin Negative Negative Urine Urobilinogen Normal Negative mg/dL Urine Leukocyte Esterase Negative Negative /uL Urine RBC <1 0 - 3 /hpf Urine Microscopic WBC 6 H 0-3 /HPF Urine Squamous Epithelial Cells None seen <5 /hpf Urine Bacteria None seen None Seen /hpf Urine Mucus Few None Seen Urine Glucose 3+ H Normal mg/dL Test 06/11/25 08:40 Range/Units Prothrombin Time 10.1 9.3-11.8 sec Prothrombin Time INR 0.95 0.9-1.15 Activated Partial Thromboplast Time 25.7 24.5-34.5 SEC Hemoglobin A1c 11.9 H <5.7 % A1C Magnesium Level 2.2 1.6-2.6 mg/dL Triglycerides Level 117 < 150 mg/dL Cholesterol Level 229 H < 200 mg/dL LDL Cholesterol 154 H < 100 mg/dL HDL Cholesterol 55 40-59 mg/dL Thyroid Stimulating Hormone (TSH) 2.95 0.55-4.78 uIU/mL Microbiology Date/Time Source Procedure Growth Status 06/11/25 18:30 Nose MRSA Screen - Final Complete Assessment Uncontrolled diabetes (hemoglobin A1c 11.9%) Inferior STEMI status post PCI with two CHAVO given Transaminitis Normocytic anemia Dyslipidemia Noncompliance Plan/Recommendation Started patient on Lantus 5 units subcutaneous daily. On moderate insulin sliding scale a.c. HS with lispro, added Jardiance. Patient will benefit from GLP one agonist as outpatient Patient currently on aspirin, Brilinta, atorvastatin. Patient will require follow up with endocrinology. Patient clearly states he does not want to use insulin while outpatient. Have explained risks of not doing so, patient takes full responsibility of the risk. Once discharge, we will indicate Jardiance no insulin due to patient's wishes. Patient does not want to use metformin. Patient will benefit from aggressive cardiovascular risk factor management. Rest of management per primary team. Goals of care discussed with patient for over 18 minutes: Full code status Discussed plan with Dr. Bey, patient and nurses: Patient currently in D OU status. On DAPT, atorvastatin and insulin therapy during admission. Patient refuses treatment with insulin as outpatient, have agreed on oral medication for his diabetic control (we will start with Jardiance), he does refused metformin treatment. Once as outpatient, patient will be started on GLP one agonist. Patient will benefit from falling on with automotive center manager (Dr. Bey). Patient has poor prognosis. Plan discussed with: Patient, Other (Nurses) Visit Coding STANDARD RES Billing Provider: RUBI BEY MD Date of Service if different f: Jun 12, 2025 Common Visit Codes: [id number] INP/OBS CARE (HIGH) Secondary Visit Codes: [id number] CARE PLAN 30 MINUTES MIGUEL ANGEL CENTENO RESIDENT Jun 12, 2025 14:17
[2025-06-12] MEDS ORDERED: DEXTROSE (50%) 50ML SYRG IV PRN (15:00)
[2025-06-12] MEDS ORDERED: INSULIN LISPRO (HUMAN) 100 UNITS/ML ML SC SCH (17:00)
[2025-06-12] MEDS: ACCU-CHEK COMFORT CURVE STRIP VI SCH (17:26)
[2025-06-12] MEDS: INSULIN LISPRO (HUMAN) 100 UNITS/ML ML SC SCH (17:26)
[2025-06-12] MEDS ORDERED: InsuLIN REG 1unit/0.01ml Soln (100units/ml) SC SCH (18:00)
[2025-06-12] MEDS: INSULIN LANTUS (GLARGINE) 1 /0.01ml (100units/ml) SC SCH (22:04)
--- NOTE | 2025-06-12 23:58 | DVHPN2 ---
Progress Note - Dictate Date Seen: Jun 12, 2025 Medical Necessity Reason Pt with a Central, PICC or Fol: No Subjective Patient was seen and evaluated in follow-up in the [facility]. Patient underwent left heart catheterization, full [place] selective left and right coronary angiography, right coronary angiography, mechanical thrombectomy of the right coronary artery with [place] catheter, stenting and angioplasty of the mid region of the right coronary artery, balloon angioplasty of the right coronary artery stent. Prior to performing the procedure #1, the right coronary artery at its mid region is 100% acutely occluded, SEAN grade 0 flow. Right coronary artery is a large dominant artery. Post procedure, SEAN grade 3 flow and residual stenosis is 0%. No spasm. No dissection. No thrombosis. The patient is advised the patient to have aspirin and Brilinta, beta zi, cholesterol reducing medicine, and outpatient follow up. vital signs Vital Sign Date Time Temp Pulse Resp B/P (MAP) Pulse Ox O2 Delivery O2 Flow Rate FiO2 06/12/25 21:19 63 22 121/59 (79) 97 06/12/25 20:19 97.6 97.6 06/12/25 20:00 Room Air* 0 21 Total Intake and Output 06/11/25 06/11/25 06/12/25 15:00 23:00 07:00 Intake Total 400 ml Output Total 1200 ml Balance -800 ml medications Current Medications Medications Dose Ordered Sig/Stacey Route Start Time Stop Time Status Last Admin Dose Admin Nitroglycerin 0.4 mg Q5MINP PRN SL 06/11/25 11:45 Morphine Sulfate 2 mg Q30M PRN IV 06/11/25 12:00 Ticagrelor 90 mg BID PO 06/11/25 22:00 06/12/25 22:06 90 MG Aspirin 81 mg DAILY PO 06/12/25 10:00 06/12/25 09:19 81 MG Metoprolol Tartrate 25 mg DAILY PO 06/12/25 10:00 06/12/25 09:20 25 MG Atorvastatin Calcium 80 mg DAILY PO 06/12/25 10:00 06/12/25 09:19 80 MG Insulin Glargine 5 units HS SC 06/12/25 22:00 06/12/25 22:04 5 UNITS Insulin Human Lispro AC SC 06/12/25 17:00 06/12/25 17:26 3 UNITS Diagnostic Test (Pha) 1 strip ACHS 06/12/25 17:00 06/12/25 22:04 1 STRIP Dextrose 50 ml UD PRN IV 06/12/25 15:00 Empaglifozin 10 mg DAILY PO 06/13/25 10:00 objective GENERAL: Alert and oriented x 3. No acute distress. EYES: PERRL, EOMI. Anicteric. HENT: Moist mucous membranes. LUNGS: Clear to auscultation bilaterally. CARDIOVASCULAR: Regular rate and rhythm. ABDOMEN: Soft, non-tender and non-distended. EXTREMITIES: No edema. NEUROLOGIC: No focal neurological deficits. SKIN: Warm, dry. laboratory and microbiology Laboratory Tests 06/12/25 05:09 Test 06/12/25 05:09 Range/Units Serum Glucose 125 #H 74-106 mg/dL Problem List ST-elevation myocardial infarction. Inferior wall myocardial infarction. Rule out structural heart disease. Asymptomatic sinus bradycardia. Ueb-cinwedg-kbrwykbeg diabetes mellitus with hyperglycemia. Dyslipidemia. Assessment/Plan Continued all current supportive medical care. Aspirin, Lipitor, Brilinta, Metoprolol. Morphine for pain management. Nitro SL. Additional plan as per the hospital course. Critical care time of 45 minutes provided to include time spent evaluation of patient at bedside, when appropriate patient/family education for diagnosis, treatment plan, review of pertinent medical information and discussion of care with specialty providers and PCP. Plan discussed with: Patient JOSELINE ZELAYA MD Jun 12, 2025 22:12
[2025-06-13] VITALS (9 sets, daily range): BP systolic 90–117; BP diastolic 50–69; PULSE 59–79; RESP 14–21; TEMP 97.7–98.3; O2SAT 95–100
[2025-06-13 06:46] LABS: Alanine Aminotransferase 26 U/L (7-40); Albumin 4.2 g/dL (3.2-4.8); Alkaline Phosphatase 109 U/L (46-116); Anion Gap 8 (5-15); BUN/Creatinine Ratio 13.7 (10.0-20.0); Blood Urea Nitrogen 17 mg/dL (9-23); Calcium 9.5 mg/dL (8.7-10.4); Carbon Dioxide 28 mmol/L (20-31); Chloride 102 mmol/L (98-107); Potassium 4.5 mmol/L (3.5-5.1); Sodium 138 mmol/L (136-145); Total Protein 6.6 g/dL (5.7-8.2)
[2025-06-13 06:48] LABS: Bilirubin, Total 0.4 mg/dL (0.2-1.0)
[2025-06-13 06:49] LABS: Glucose 188 mg/dL (74-106)
[2025-06-13] MEDS: EMPAGLIFLOZIN 10 MG TAB PO SCH (09:26)
[2025-06-13] MEDS ORDERED: DEXTROSE (50%) 50ML SYRG IV PRN ×2 (10:45)
--- NOTE | 2025-06-13 10:56 | DVHPN2 ---
Progress Note - Dictate Date Seen: Jun 13, 2025 Medical Necessity Reason Pt with a Central, PICC or Fol: No Subjective Fasting and postprandial dysglycemia. vital signs Vital Sign Date Time Temp Pulse Resp B/P (MAP) Pulse Ox O2 Delivery O2 Flow Rate FiO2 06/13/25 09:27 69 102/54 06/13/25 08:51 97.7 16 97 97.7 06/13/25 08:00 Room Air* 0 21 Total Intake and Output 06/12/25 06/12/25 06/13/25 15:00 23:00 07:00 Intake Total 800 ml 300 ml Output Total 600 ml Balance 200 ml 300 ml medications Current Medications Medications Dose Ordered Sig/Stacey Route Start Time Stop Time Status Last Admin Dose Admin Nitroglycerin 0.4 mg Q5MINP PRN SL 06/11/25 11:45 Morphine Sulfate 2 mg Q30M PRN IV 06/11/25 12:00 Ticagrelor 90 mg BID PO 06/11/25 22:00 06/13/25 09:26 90 MG Aspirin 81 mg DAILY PO 06/12/25 10:00 06/13/25 09:26 81 MG Metoprolol Tartrate 25 mg DAILY PO 06/12/25 10:00 06/13/25 09:27 25 MG Atorvastatin Calcium 80 mg DAILY PO 06/12/25 10:00 06/13/25 09:27 80 MG Insulin Glargine 5 units HS SC 06/12/25 22:00 06/12/25 22:04 5 UNITS Insulin Human Lispro AC SC 06/12/25 17:00 06/13/25 06:28 3 UNITS Diagnostic Test (Pha) 1 strip ACHS 06/12/25 17:00 06/13/25 06:28 1 STRIP Dextrose 50 ml UD PRN IV 06/12/25 15:00 Empaglifozin 10 mg DAILY PO 06/13/25 10:00 06/13/25 09:26 10 MG objective Gen - no acute distress HEENT - no thyromegaly CV - RRR , no m/r/g Resp - CTAB Ext - no edema laboratory and microbiology Laboratory Tests 06/13/25 05:58 06/12/25 05:09 Test 06/13/25 05:58 Range/Units Serum Glucose 188 H 74-106 mg/dL Assessment/Plan # STEMI s/p angioplasty and stenting # Uncontrolled type II DM with hyperglycemia # HTN - Glargine 8 units daily - Lispro 3 units tidac - Lispro mod intensity SSI tidac, qhs - POC BG tidac, qhs - Hypoglycemia protocol - Diabetic diet - Jardiance 10mg daily - Recommend starting GLP1-RA as outpatient - Patient adamant on not wanting insulin outpatient. Risks of not continuing insulin as outpatient discussed including . Patient verbalized understanding. Plan discussed with: Other (nurse) RUBI BEY MD Jun 13, 2025 10:56
[2025-06-13] MEDS ORDERED: ACCU-CHEK COMFORT CURVE STRIP VI SCH ×2 (11:30)
[2025-06-13] MEDS ORDERED: InsuLIN REG 1unit/0.01ml Soln (100units/ml) SC SCH ×3 (11:30→22:00)
[2025-06-13] MEDS: INSULIN LISPRO (HUMAN) 100 UNITS/ML ML SC SCH (11:46)
--- NOTE | 2025-06-13 11:47 | DVHDS2 ---
Discharge Summary Date of Admission Jun 11, 2025 at 11:40 Date of Discharge: Jun 13, 2025 Labs/Diagnostic Data: Laboratory Results Test 06/13/25 06:14 06/13/25 05:58 06/12/25 05:09 06/11/25 09:48 POC Glucose 194 mg/dl (70-106) Sodium Level 138 mmol/L (136-145) Potassium Level 4.5 mmol/L (3.5-5.1) Chloride Level 102 mmol/L (98-107) Carbon Dioxide Level 28 mmol/L (20-31) Anion Gap 8 (5-15) Blood Urea Nitrogen 17 mg/dL (9-23) Creatinine 1.24 mg/dL (0.700-1.30) Glomerular Filtration Rate Calc 61 mL/min (>90) BUN/Creatinine Ratio 13.7 (10.0-20.0) Serum Glucose 188 mg/dL (74-106) Calcium Level 9.5 mg/dL (8.7-10.4) Total Bilirubin 0.4 mg/dL (0.2-1.0) Aspartate Amino Transferase (AST) 44 U/L (13-40) Alanine Aminotransferase (ALT) 26 U/L (7-40) Alkaline Phosphatase 109 U/L (46-116) Total Protein 6.6 g/dL (5.7-8.2) Albumin 4.2 g/dL (3.2-4.8) White Blood Count 8.3 10^3/uL (4.4-10.8) Red Blood Count 4.52 10^6/uL (4.5-5.90) Hemoglobin 13.2 g/dL (13.5-17.5) Hematocrit 39.8 % (41.0-53.0) Mean Corpuscular Volume 88.1 fL (80.0-100.0) Mean Corpuscular Hemoglobin 29.2 pg (28.0-32.0) Mean Corpuscular Hemoglobin Concent 33.1 g/dL (32.0-36.0) Red Cell Distribution Width 13.1 % (11.8-14.3) Platelet Count 289 10^3/uL (140-450) Mean Platelet Volume 7.3 fL (6.9-10.8) Neutrophils (%) (Auto) 76.1 % (37.0-80.0) Lymphocytes (%) (Auto) 14.1 % (10.0-50.0) Monocytes (%) (Auto) 8.9 % (0.0-12.0) Eosinophils (%) (Auto) 0.7 % (0.0-7.0) Basophils (%) (Auto) 0.2 % (0.0-2.0) Neutrophils # (Auto) 6.4 10 ^3/uL (1.6-8.6) Lymphocytes # (Auto) 1.2 10 ^3/uL (0.4-5.4) Monocytes # (Auto) 0.7 10 ^3/uL (0-1.3) Eosinophils # (Auto) 0.1 10 ^3/uL (0-0.8) Basophils # (Auto) 0 10 ^3/uL (0-0.2) Nucleated Red Blood Cells 0.1 % Troponin I High Sensitivity 237 ng/L (</=54) Test 06/11/25 09:18 06/11/25 08:40 Urine Color Yellow (Yellow) Urine Clarity Clear (Clear) Urine pH 5.5 (5.0-9.0) Urine Specific [place] 1.025 (1.001-1.035) Urine Protein Trace (Negative) Urine Ketones 1+ (Negative) Urine Blood Negative /uL (Negative) Urine Nitrite Negative (Negative) Urine Bilirubin Negative (Negative) Urine Urobilinogen Normal mg/dL (Negative) Urine Leukocyte Esterase Negative /uL (Negative) Urine RBC <1 /hpf (0 - 3) Urine Microscopic WBC 6 /HPF (0-3) Urine Squamous Epithelial Cells None seen /hpf (<5) Urine Bacteria None seen /hpf (None Seen) Urine Mucus Few (None Seen) Urine Glucose 3+ mg/dL (Normal) Prothrombin Time 10.1 sec (9.3-11.8) Prothrombin Time INR 0.95 (0.9-1.15) Activated Partial Thromboplast Time 25.7 SEC (24.5-34.5) Hemoglobin A1c 11.9 % A1C (<5.7) Magnesium Level 2.2 mg/dL (1.6-2.6) Triglycerides Level 117 mg/dL (< 150) Cholesterol Level 229 mg/dL (< 200) LDL Cholesterol 154 mg/dL (< 100) HDL Cholesterol 55 mg/dL (40-59) Thyroid Stimulating Hormone (TSH) 2.95 uIU/mL (0.55-4.78) Other Laboratory Tests 06/13/25 05:58 06/12/25 05:09 Brief Hx & Hospital Course: see dictated note Condition at Discharge: Fair Final Diagnosis/Problems List cad Discharge Disposition: Home Discharge Instruct/Medications Diet: Consistent carbohydrate, Cardiac 2g Na,low cholest Activity: No Restrictions, As Tolerated Follow Up/Referral: fu with pcp/cardiology in 1 wk Medications: script to pharmacy Scheduled Ibuprofen (Ibuprofen), 1 TAB PO TID Meclizine HCl (Meclizine 25), 25 MG PO BID Discharge Statement: "Patient was advised to return to the ER or call 911 if any headaches, dizziness, shortness of breath, chest pain, abdominal pain, bleeding, fevers, or worsening of medical condition. Patient was counseled about treatment plan, medications, possible side effects, patientverbalized understanding. All questions were answered to the best of my ability. This discharge took greater then 30 minutes in planning, reviewing documentation, counseling the patient, and discussing with other team members." ASSESSMENT ASSESSMENT Assessment cad Date of Service: Jun 13, 2025 Billing Provider: PAULINA DANIELLE MD Common Visit Codes: 52396-RRE/OBS DISCH DAY >30min PAULINA DANIELLE MD Jun 13, 2025 11:47
[2025-06-13] MEDS ORDERED: ATOR80TA PO (12:23)
[2025-06-13] MEDS ORDERED: ASPI1TAB20 PO (12:23)
[2025-06-13] MEDS ORDERED: METO25TA36 PO (12:23)
[2025-06-13] MEDS ORDERED: GLIP-110 PO (12:23)
[2025-06-13] MEDS ORDERED: EMPA1TAB PO (12:23)
[2025-06-13] MEDS ORDERED: TICA90TA PO (12:23)
--- NOTE | 2025-06-13 17:05 | DVHDS ---
DATE OF DISCHARGE: 06/13/2025 HISTORY OF PRESENT ILLNESS: The patient is a 75-year-old gentleman who was admitted with complaints of chest pain and diaphoresis and has a previous history of diabetes and hyperlipidemia, but has been noncompliant. HOSPITAL COURSE: The patient was seen in Cardiology, consulted by Dr. Raffi Lambert as a STEMI. The patient underwent coronary angiography and was found to have a 100% occluded right mid coronary with subsequent stent placed. The patient had elevated troponin levels. LDL was 154. The patient's hemoglobin A1c was elevated at 11.9. The patient is now chest pain-free. Chest x-ray was unremarkable. He will be discharged to be on aspirin 81 mg daily, Brilinta 90 mg b.i.d., Toprol XL 25 mg daily, Lipitor 80 mg at bedtime, glipizide ER 5 mg daily, and Jardiance 10 mg daily. I have stressed to the patient the need to be compliant with his medications, including his antiplatelet drugs. 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 FINAL DIAGNOSES: * ST-elevation myocardial infarction status post coronary angiography and stent placement. * Uncontrolled diabetes mellitus. * Hyperlipidemia. * History of noncompliance. Time spent in discharge planning and review of plan with the patient and nursing was 39 minutes. MD CHEL Paiz/SANGITA TID: [id number] RECEIPT: [id number]
--- NOTE | 2025-06-13 22:31 | DVHPN2 ---
Progress Note - Dictate Date Seen: Jun 13, 2025 Medical Necessity Reason Pt with a Central, PICC or Fol: No Subjective Patient was seen and evaluated in follow-up. Patient was downgraded to tele bed. Patient does not voice any complaints. Patient is cardiac stable for discharge. Telemetry reviewed. vital signs Vital Sign Date Time Temp Pulse Resp B/P (MAP) Pulse Ox O2 Delivery O2 Flow Rate FiO2 06/13/25 12:59 98.3 67 14 109/69 (82) 99 98.3 06/13/25 08:00 Room Air* 0 21 Total Intake and Output 06/12/25 06/12/25 06/13/25 15:00 23:00 07:00 Intake Total 800 ml 300 ml Output Total 600 ml Balance 200 ml 300 ml medications Current Medications Medications Dose Ordered Sig/Stacey Route Start Time Stop Time Status Last Admin Dose Admin Nitroglycerin 0.4 mg Q5MINP PRN SL 06/11/25 11:45 Morphine Sulfate 2 mg Q30M PRN IV 06/11/25 12:00 Ticagrelor 90 mg BID PO 06/11/25 22:00 06/13/25 09:26 90 MG Aspirin 81 mg DAILY PO 06/12/25 10:00 06/13/25 09:26 81 MG Metoprolol Tartrate 25 mg DAILY PO 06/12/25 10:00 06/13/25 09:27 25 MG Atorvastatin Calcium 80 mg DAILY PO 06/12/25 10:00 06/13/25 09:27 80 MG Insulin Glargine 5 units HS SC 06/12/25 22:00 06/12/25 22:04 5 UNITS Diagnostic Test (Pha) 1 strip ACHS 06/12/25 17:00 06/13/25 11:45 1 STRIP Dextrose 50 ml UD PRN IV 06/12/25 15:00 Empaglifozin 10 mg DAILY PO 06/13/25 10:00 06/13/25 09:26 10 MG Diagnostic Test (Pha) 1 strip ACHS 06/13/25 11:30 UNV Insulin Human Regular ACHS SC 06/13/25 11:30 UNV Dextrose 50 ml UD PRN IV 06/13/25 10:45 UNV Insulin Human Lispro ACHS SC 06/13/25 11:30 06/13/25 11:46 3 UNITS Diagnostic Test (Pha) 1 strip ACHS 06/13/25 11:30 UNV Insulin Human Regular HS SC 06/13/25 22:00 UNV Insulin Human Regular AC SC 06/13/25 11:30 UNV Dextrose 50 ml UD PRN IV 06/13/25 10:45 UNV objective GENERAL: Alert and oriented x 3. No acute distress. EYES: PERRL, EOMI. Anicteric. HENT: Moist mucous membranes. LUNGS: Clear to auscultation bilaterally. CARDIOVASCULAR: Regular rate and rhythm. ABDOMEN: Soft, non-tender and non-distended. EXTREMITIES: No edema. NEUROLOGIC: No focal neurological deficits. SKIN: Warm, dry. laboratory and microbiology Laboratory Tests 06/13/25 05:58 06/12/25 05:09 Test 06/13/25 05:58 Range/Units Serum Glucose 188 H 74-106 mg/dL Problem List ST-elevation myocardial infarction. Inferior wall myocardial infarction. Rule out structural heart disease. Asymptomatic sinus bradycardia. [id number] diabetes mellitus with hyperglycemia. Dyslipidemia. Assessment/Plan Continued all current supportive medical care. Aspirin, Lipitor, Brilinta, Metoprolol. Morphine for pain management. Nitro SL. Additional plan as per the hospital course. Plan discussed with: Patient JOSELINE ZELAYA MD Jun 13, 2025 13:43
== END 2025-06-13 16:03 | disposition home or self-care (01) | DRG 360 ==
LOC: ER 08:27 → OVERFLOW 11:40 → DOU 18:24 → TELE-WESTW 06-13 02:30
PROVIDERS: ADMIT Internal Medicine; ATTEND Internal Medicine
PROC: 4A023N7 Measurement of Cardiac Sampling and Pressure, Left Heart, Percutaneous Approach (ICD-10-PCS; principal; 2025-06-11)
PROC: 027034Z Dilation of Coronary Artery, One Artery with Drug-eluting Intraluminal Device, Percutaneous Approach (ICD-10-PCS; 2025-06-11)
PROC: 02C03ZZ Extirpation of Matter from Coronary Artery, One Artery, Percutaneous Approach (ICD-10-PCS; 2025-06-11)
PROC: B211YZZ Fluoroscopy of Multiple Coronary Arteries using Other Contrast (ICD-10-PCS; 2025-06-11)
PROC: B240ZZ3 Ultrasonography of Single Coronary Artery, Intravascular (ICD-10-PCS; 2025-06-11)
DX: I21.19 ST elevation (STEMI) myocardial infarction involving other coronary artery of inferior wall (principal); E11.65 Type 2 diabetes mellitus with hyperglycemia; I10 Essential (primary) hypertension; I25.10 Atherosclerotic heart disease of native coronary artery without angina pectoris; E78.5 Hyperlipidemia, unspecified; R00.1 Bradycardia, unspecified; Z79.4 Long term (current) use of insulin; Z79.82 Long term (current) use of aspirin; Z79.84 Long term (current) use of oral hypoglycemic drugs; Z79.899 Other long term (current) drug therapy; Z83.3 Family history of diabetes mellitus; Z91.199 Patient's noncompliance with other medical treatment and regimen due to unspecified reason; Z95.5 Presence of coronary angioplasty implant and graft
CPT/HCPCS: 36415; 71045; 80053; 80061; 81001; 82962; 83036; 83735; 84443; 84484; 85025; 85610; 85730; 86850; 86900; 86901; 87081; 92941; 92973; 92978; 93005; 93306; 93458; 96361; 96374; 96375; 99152; C1887; G0378; J1815; J2250; J2405; Q9967